=== PATIENT | female | born 1995 | race Caucasian/White ===

== ENCOUNTER → 2025-07-19 10:16 | Outpatient (REF) | payer OTHER, SELFPAY | LOC: RCS 10:16 | PROVIDERS: ATTENDING PHYSICIAN Family Medicine | DX: R42 Dizziness and giddiness (principal); R00.2 Palpitations | CPT/HCPCS: 93225; 93226 ==

== ENCOUNTER 2025-07-20 12:27 | Emergency (ER) | payer OTHER, SELFPAY ==
[2025-07-20] VITALS (10 sets, daily range): BP systolic 107–148; BP diastolic 61–89; PULSE 80–87
--- NOTE | 2025-07-20 13:05 | ED.GENMED ---
History of Present Illness
General
Chief Complaint: Chest Pain
Source: patient and family
Exam Limitations: none
Time Seen by Provider: 07/20/25 13:01
History of Present Illness
History of Present Illness:
29yoF with no significant past medical history presented with her mother for evaluation of chest pain. Symptoms initially started about 2 weeks ago when she was on a trip to [place]. She reports a sudden onset of lightheadedness that was followed
by chest discomfort and shortness of breath. She states her whole body went numb and she felt like she was going to . The symptoms eventually subsided but have been recurrent since then. She was seen by her PCP for this who thought she was
having panic attacks but ordered an outpatient Holter monitor which she put on yesterday. She also has an echocardiogram scheduled on 08/04. She was opening [facility] presents this morning when she again started to have lightheadedness around 10:30
AM. This was followed by palpitations which feel like her heart is flipping. She again developed chest discomfort which is now improving but she continues to feel lightheaded. Of note, patient was seen at an outside ED last month for abdominal
discomfort and had a normal workup. She was started on a new control pill by her still operator brandy. Other medications include Wegovy and she was recently prescribed Xanax at her recent PCP visit which did not help today.
Past History
Past History
ED Past Medical History: Other (Migraines)
ED Past Surgical History: None
Social History
Personal: Single
Living: with family
Phy Exam
General Physical Exam
General Presentation: well appearing and no apparent distress
General Skin: warm and dry
General Habitus: normal
General Mental: alert
ENT Exam
ENT Exam: TM's normal and normocephalic
Eye Exam
Eye Exam: PERRL, EOMI and conjunctiva normal
Cardiovascular Exam
Cardiovascular Exam: regular rate/rhythm, no edema and no murmur
Pulmonary Exam
Pulmonary Exam: lungs clear, no respiratory distress, no rales, no crackles, no rhonchi and no wheezing
Neurological Exam
Neurological Exam: alert and speech normal
Leonidas Coma Scale
Eye Opening: Spontaneous
Verbal Response: Oriented
Motor Response: Obeys Commands
GCS Total Score: 15
Skin Exam
Skin Exam: normal color and warm/dry
Psychiatric Exam
Psychiatric Exam: anxious
Scores
Heart Score for Chest Pain Patients
STEMI patient?: No
History: Slightly or Non-Suspicious
ECG: Nonspecific Repolarization
Age: </= 45 years
Risk Factors: No Risk Factors
Troponin: </= Normal Limit
Heart Score for Chest Pain Patients: 1
Heart Score Risk: 2.5% MACE over next 6 weeks
Course
Orders/Labs/Results
Orders:
Orders
07/20/25 12:28
Electrocardiogram (*1) Urgent
Reason for Study: Chest Pain
EKG- Treatment ONCE
07/20/25 13:06
Complete Blood Count/With Diff Urgent
Comprehensive Metabolic Panel Urgent
HCG, Serum Qualitative Screen Urgent
TSH Reflex To Free T4 Urgent
Troponin I Urgent
07/20/25 13:09
Add On- LAB Urgent
Tests Added?: tsh w/ reflex
07/20/25 13:10
D-Dimer Urgent
07/20/25 13:19
Add On- LAB Urgent
Tests Added?: qualitative HCG
Cardiac Monitoring- Treatment ONCE
0.9% Sodium Chloride 1000 ml [Nss] 1,000 ml IV BOLUS
07/20/25 14:50
EKG- Treatment ONCE
Orthostatic VS- Treatment ONCE
07/20/25 16:00
Electrocardiogram (*1) Urgent
Reason for Study: Chest Pain
07/20/25 16:10
Troponin I Urgent
Abnormal Lab Results
07/20/25
13:06
RBC 4.08 L 10^6/uL
(4.20-5.40)
Hct 36.7 L %
(37.0-47.0)
MCH 31.1 H pg
(27.0-31.0)
Alkaline Phosphatase 37 L U/L
(38-126)
07/20/25 13:06
07/20/25 13:06
Vital Signs
Initial and Last Documented VS:
Initial Vital Signs
Temp Pulse Resp BP Pulse Ox
98.2 F 93 20 148/89 99
07/20/25 12:28 07/20/25 12:28 07/20/25 12:28 07/20/25 12:28 07/20/25 12:28
Last Documented Vital Signs
Temp Pulse Resp BP Pulse Ox
98.2 F 70 19 117/61 99
07/20/25 12:28 07/20/25 17:00 07/20/25 17:00 07/20/25 17:00 07/20/25 17:00
MDM/Problems Addressed
Differential Diagnosis Includes:
29yoF here with intermittent bouts of lightheadedness, palpitations, chest discomfort x 2 weeks. Has been seen by her PCP. Currently on a Holter monitor. She is hypertensive with otherwise normal vitals. Patient well appearing in no distress. Exam
reassuring. Differential diagnosis includes: arrhythmia, thyroid dysfunction, less likely ACS, consider PE
Initial ED plan: Triage EKG shows NSR with nonspecific ST changes. Check cardiac labs, D-dimer, TSH, and HCG. IV fluid bolus.
*Pulse Oximetry
SaO2: 99
Oxygen Mode of Delivery: Room air
Patient hypoxic: no
*EKG
Interpreted by ED Provider?: Yes
EKG Intrepretation Date: 07/20/25
Heart Rate: 87
Rate: normal
Rhythm: sinus
Qulin: normal axis
QRS Pattern: right bundle branch block (incomplete)
Ischemia: non-specific ST changes
*Critical Care Note
Total Time (30-74mins, 75-104mins- exclusive of procedures): Not Applicable
Update Note
Update Note:
Labs unremarkable including normal hemoglobin, electrolytes, TSH. Troponin undetectable. D-dimer normal making PE very unlikely. Orthostatic vital signs added which are normal. Repeat troponin/EKG performed at 3 hours unchanged. No telemetry
events throughout ED stay. Unclear etiology of symptoms. She does have an echocardiogram scheduled for next month. She was advised to follow-up with her PCP as well as cardiology. ED return precautions reviewed and she was discharged in stable
condition.
ED Attending Note
-
Portions of this chart may have been created with voice recognition software.� Occasional wrong word or��sound alike� substitutions may have occurred due to the inherent limitations of voice recognition software.
Discharge Plan
Departure
Patient Disposition: Home (Routine Discharge)
Date of Disposition: 07/20/25
Time of Disposition: 16:58
Patient with high blood pressure during this ER visit?: No
Discharge Problem:
Lightheadedness, Palpitations, Chest pain
Prescriptions:
No Action
spironolactone 50 MG tablet
50 mg PO DAILY
meclizine 25 MG tablet
25 mg PO Q8HPRN PRN (Reason: Dizziness) Qty: 10 0RF
Referrals:
Catie Vargas MD [Family Provider, Family Practice]
Samantha Stewart MD [Active, Cardiology]
Activity Restrictions/Additional Instructions:
Please follow-up with your family doctor as well as cardiology. Return to the ER with any new or worsening symptoms.
Interventions
Interventions:
*ED COVID-19 Vaccine History Last Done: 07/20/25 12:28
*ED Influenza Vaccine History Last Done: 07/20/25 12:28
[facility] Risk Assessment Tool Last Done: 07/20/25 13:18
*Risk Screen - Suicide (C-SSRS) Last Done: 07/20/25 12:28
*Nursing Disposition Last Done: 07/20/25 17:06
ED- Cardiac Assessment Last Done: 07/20/25 13:12
Discharge Date and Time
Discharge Date/Time: 07/20/25 17:06
Print Language: SWEDISH
[2025-07-20 13:32] LABS: Hematocrit 36.7 % (37.0-47.0); Hemoglobin 12.7 g/dL (12.0-16.0); Mean Corp Hgb Conc. 34.6 g/dL (33.0-37.0); Mean Corpuscular Volume 90.0 fL (81.0-99.0); Nucleated Red Blood Cells % 0 %; Platelet Count 242 10^3/uL (130-400); Red Cell Dist. Width 12.0 % (11.5-14.5)
[2025-07-20] MEDS: NSS 1000 IV (13:40)
[2025-07-20 13:48] LABS: ALT (SGPT) 13 U/L (0-35); AST (SGOT) 17 U/L (14-36); Albumin 4.5 g/dl (3.5-5.0); Alkaline Phosphatase 37 U/L (38-126); Blood Urea Nitrogen 12 mg/dl (7-17); Calcium 10.1 mg/dl (8.4-10.2); Carbon Dioxide 25 mmol/L (22-30); Chloride 106 mmol/L (98-107); Glucose 87 mg/dl (70-99); Potassium 4.4 mmol/L (3.5-5.1); Sodium 137 mmol/L (135-145); Total Protein 7.4 g/dl (6.3-8.2); eGFR > 60.00
[2025-07-20 13:51] LABS: D-Dimer 0.37 ug/mlFEU (0.00-0.50)
[2025-07-20 14:00] LABS: Troponin I < 0.012 ng/ml
[2025-07-20 14:19] LABS: HCG, Serum Qualitative Screen Negative
[2025-07-20 16:40] LABS: Troponin I < 0.012 ng/ml
== END 2025-07-20 17:06 | disposition home or self-care (01) ==
LOC: EMR 12:27
PROVIDERS: Emergency Medicine; Physician Assistant; EMERGENCY PHYSICIAN Emergency Medicine; FAMILY PHYSICIAN Family Medicine
DX: R42 Dizziness and giddiness (principal); R00.2 Palpitations; R07.9 Chest pain, unspecified; I45.10 Unspecified right bundle-branch block
CPT/HCPCS: 99284; 96360; 80053; 84443; 84484; 84703; 85025; 85379; 93005